=== PATIENT | male | born 1960 | race Caucasian/White ===

== ENCOUNTER 2017-02-09 09:57 | Emergency (ER) | payer OTHER ==
[~2017-02-09] VITALS: Ht 160 cm; Wt 99.0 kg
[2017-02-09 10:06] VITALS: Ht 160 cm; Wt 99.0 kg
--- NOTE | 2017-02-09 11:49 | ERD ---
ER Documentation Chief Complaint Date/Time DATE: 02/09/17 TIME: 11:47 Chief Complaint Sent for eval and recheck left wrist pain HPI 56-year-old male presents status post fall from ladder presenting with distal radius, distal ulna fracture of the left wrist that occurred on Monday, 3 days ago. Patient was in [facility], had an x-ray done and was placed in a long-arm splint. He states that he was told to follow-up with orthopedics shortly presents here. He states his pain is better, denies any weakness, paresthesias, fevers or chills. ROS All systems reviewed and are negative except as per history of present illness. PMhx/Soc Medical and Surgical Hx: pt denies Medical Hx, pt denies Surgical Hx Hx Alcohol Use: No Hx Substance Use: No Hx Tobacco Use: No Smoking Status: Never smoker Physical Exam Vitals Vital Signs Date Time Temp Pulse Resp B/P Pulse Ox O2 Delivery O2 Flow Rate FiO2 02/09/17 10:06 98.2 90 20 134/84 96 Physical Exam General: Well-developed, well-nourished. The patient appears in no acute distress. HEENT: Head is normocephalic, atraumatic. No scleral icterus. Neck: Supple. Nontender. Lungs: Clear to auscultation. Normal air movement. Heart: Regular rate and rhythm. S1 and S2 are normal. No murmurs, gallops, or rubs. Abdomen: Nondistended. Extremities: Present in a splint on the left upper extremity, patient's capillary refill is less than 2 seconds. He has minimal pain with shoulder mobilization. Neurologic: Alert and oriented 3. No focal deficits. Normal speech and gait. Skin: Normal turgor. No rash or lesions. Procedures/MDM 56-year-old male presents with a distal radius ulna fracture that is an acute closed fracture from 3 days ago. Patient is neurovascularly intact. I believe that the patient can be managed on outpatient basis, does not show any signs of compartment syndrome, infection, dislocation, neurovascular injury. I have given him information for orthopedic evaluation outpatient. Departure Diagnosis: Primary Impression: Wrist fracture, left Patient Instructions: Fracture, Wrist [General] Referrals: LENARD WEINBERG MD [facility] YOU HAVE RECEIVED A MEDICAL SCREENING EXAM AND THE RESULTS INDICATE THAT YOU DO NOT HAVE A CONDITION THAT REQUIRES URGENT TREATMENT IN THE EMERGENCY DEPARTMENT. FURTHER EVALUATION AND TREATMENT OF YOUR CONDITION CAN WAIT UNTIL YOU ARE SEEN IN YOUR DOCTORS OFFICE WITHIN THE NEXT 1-2 DAYS. IT IS YOUR RESPONSIBILITY TO MAKE AN APPOINTMENT FOR FOLOW-UP CARE. IF YOU HAVE A PRIMARY DOCTOR --you should call your primary doctor and schedule an appointment IF YOU DO NOT HAVE A PRIMARY DOCTOR YOU CAN CALL OUR PHYSICIAN REFERRAL HOTLINE AT IF YOU CAN NOT AFFORD TO SEE A PHYSICIAN YOU CAN CHOSE FROM THE FOLLOWING [facility] [address] [facility] [address] [facility] [facility] [address] [facility] [facility] [address] [facility] [address] [facility]. [facility] [address] [facility] [facility] YOU HAVE RECEIVED A MEDICAL SCREENING EXAM AND THE RESULTS INDICATE THAT YOU DO NOT HAVE A CONDITION THAT REQUIRES URGENT TREATMENT IN THE EMERGENCY DEPARTMENT. FURTHER EVALUATION AND TREATMENT OF YOUR CONDITION CAN WAIT UNTIL YOU ARE SEEN IN YOUR DOCTORS OFFICE WITHIN THE NEXT 1-2 DAYS. IT IS YOUR RESPONSIBILITY TO MAKE AN APPOINTMENT FOR FOLOW-UP CARE. IF YOU HAVE A PRIMARY DOCTOR --you should call your primary doctor and schedule and appointment IF YOU DO NOT HAVE A PRIMARY DOCTOR YOU CAN CALL OUR PHYSICIAN REFERRAL HOTLINE AT . IF YOU CAN NOT AFFORD TO SEE A PHYSICIAN YOU CAN CHOSE FROM THE FOLLOWING [facility] INSTITUTIONS: [facility] [address] [place] [address] [facility] [address] [place] [address] FORMERLY [facility] + [facility] [address] [place] [address] Additional Instructions: ORTOPEDICO Specialist:Usted tiene darnell condicin mdica que requiere que joseph a un especialista dentro de los prximos 3-4 mendoza.POR FAVOR,CON REHMAN SEGUIMIENTO DE PRIMARIA PHSICIAN refferal. SI USTED NO TIENE UN MDICO GENERAL Y / O USTED NO PUEDE PAGAR francis a un mdico,los siguientes thorne RECURSOS sido suministrado a usted. ES REHMAN RESPONSABILIDAD PARA SER VISTOS POR EL ESPECIALISTA: EMI ESCOBAR PA-C Feb 09, 2017 11:49
== END 2017-02-09 11:42 | disposition home or self-care (01) ==
LOC: FTE 09:57
DX: S52.501A Unspecified fracture of the lower end of right radius, initial encounter for closed fracture (principal); S52.602A Unspecified fracture of lower end of left ulna, initial encounter for closed fracture; W11.XXXA Fall on and from ladder, initial encounter; Y92.9 Unspecified place or not applicable
CPT/HCPCS: 99282

== ENCOUNTER 2017-06-28 21:17 | Emergency (ER) | END 2017-06-29 01:48 | disposition home or self-care (01) ==